=== PATIENT | female | born 1955 | race Caucasian/White ===

== ENCOUNTER → 2017-03-24 | Outpatient (CLI) | payer BC | LOC: CIMAGING 17:12 | PROVIDERS: ATTEND Family Medicine | DX: Z13.83 Encounter for screening for respiratory disorder NEC (principal); I10 Essential (primary) hypertension; H02.409 Unspecified ptosis of unspecified eyelid | CPT/HCPCS: 71020-PO ==

== ENCOUNTER → 2018-02-27 | Outpatient (CLI) | payer BC | LOC: CIMAGING 10:44 | PROVIDERS: ATTEND Family Medicine | DX: Z12.31 Encounter for screening mammogram for malignant neoplasm of breast (principal) ==